=== PATIENT | male | born 1950 ===

== ENCOUNTER 2016-07-16 14:13 | Emergency (ER) | payer OTHER ==
--- NOTE | 2016-07-16 14:36 | C.PDOC ---
History Of Present Illness 66 y/o M c PMHx HTN p/w L sided back pain x 1 hour after patient accidentally fell striking his L flank against the corner of a couch. He reports severe pain there which is worse with movement, palpation, or deep breath. Denies vomiting, LOC, headstrike, numbness, weakness. Time Seen by Provider: 07/16/16 14:27 Chief Complaint (Nursing): Back Pain Past Medical History Vital Signs: Last Vital Signs Temp 98.3 F 07/16/16 14:15 Pulse 56 L 07/16/16 14:15 Resp 16 07/16/16 14:15 BP 165/99 H 07/16/16 14:15 Pulse Ox 99 07/16/16 15:43 - Medical History PMH: HTN Family History: States: No Known Family Hx - Social History Hx Alcohol Use: No Hx Substance Use: No - Immunization History Hx Tetanus Toxoid Vaccination: No Hx Influenza Vaccination: No Hx Pneumococcal Vaccination: No Review Of Systems Except As Marked, All Systems Reviewed And Found Negative. Constitutional: Negative for: Fever Cardiovascular: Negative for: Chest Pain Physical Exam - Physical Exam Additional Physical Exam Comments: Constitutional: No acute distress. Head: Normocephalic. Atraumatic. Eyes: PERRL. EOMI ENT: Moist mucous membranes. Neck: Supple. Cardiovascular: Regular rate. Radial pulses 2+ bilaterally. Chest: Focal tenderness over L sided posterior rib. No crepitus, deformity, ecchymosis. Respiratory: Clear to auscultation bilaterally w/ equal breath sounds. GI: Soft. Nontender. Nondistended. Back: No CVA tenderness. No midline tenderness. Musculoskeletal: No tenderness or swelling of extremities. Skin: No rash. Neurologic: Alert, no focal deficit. ED Course And Treatment O2 Sat by Pulse Oximetry: 99 Medical Decision Making Medical Decision Making: Will treat with Toradol IM and image ribs and CXR. CXR shows no fracture, dislocation, PTX, air under diaphgram, or pleural effusion. Patient continues to have pain. Will treat with Percocet and reassess. No previous prescriptions in registry for controlled substances. Patient feels much better after medication. I advised the patient on the risks of Percocet including addiction. Will provide short course, instructed to f/u PMD and to return to the ER for worsening pain, vomiting, dyspnea, or any other concern. Disposition - Disposition Disposition: HOME/ ROUTINE Disposition Time: 17:13 Condition: STABLE Prescriptions: oxyCODONE/Acetaminophen [Percocet 5/325 mg Tab] 1 tab PO Q6 #10 tab Instructions: Rib Contusion (ED) Forms: Work Excuse - Clinical Impression Clinical Impression: Contusion of back
[2016-07-16] MEDS ORDERED: Oxycodone/Acetaminophen 5/325 mg Tab PO STA (15:39)
[2016-07-16] MEDS ORDERED: Oxycodone/Acetaminophen 5/325 mg Tab ONE (15:46)
[2016-07-16 17:26] VITALS: BP 157/83; PULSE 62; RESP 20; TEMP 98.9; O2SAT 96
--- NOTE | 2016-07-16 18:03 | RAD ---
PROCEDURE: Radiographs of the Chest and Left Ribs. HISTORY: struck L sided back, dyspneic COMPARISON: None available. TECHNIQUE: Frontal radiograph of the chest and multiple oblique radiographs of the left ribs were obtained. FINDINGS: LEFT RIBS: No fracture or focal lesion visualized. LUNGS: Clear. PLEURA: No pneumothorax or pleural fluid. CARDIOVASCULAR: Normal sized heart. No pulmonary vascular congestion. OTHER FINDINGS: None. IMPRESSION: No evidence of acute fracture.
== END 2016-07-16 17:49 | disposition home or self-care (01) ==
LOC: C.ER 14:13
DX: S30.0XXA Contusion of lower back and pelvis, initial encounter (principal); W07.XXXA Fall from chair, initial encounter; Y93.89 Activity, other specified; Y92.008 Other place in unspecified non-institutional (private) residence as the place of occurrence of the external cause
CPT/HCPCS: 71101; 96372; 99284; J1885